=== PATIENT | female | born 1960 | race Hispanic/Latino ===

== ENCOUNTER 2023-04-15 16:17 | Emergency (ER) | payer BC ==
[~2023-04-15 16:17] MED LIST: Iopamidol 370 76% 100 ML VIAL ONE
[2023-04-15 17:23] LABS: #Basophils 0.1 10x3/uL (0.0-0.2); #Eosinphils 0.4 10x3/uL (0.0-0.5); #Monocytes 1.3 10x3/uL (0.0-1.1); #Neutrophils 11.3 10x3/uL (1.5-8.4); %Basophils 0.5 % (0.0-2.0); %Eosinophils 2.7 % (0.0-6.0); %Lymphocytes 11.8 % (18.0-47.0); %Monocytes 8.8 % (0.0-10.0); %Neutrophils 75.8 % (40.0-75.0); Hemoglobin 13.3 g/dL (12.0-15.5); Mean Corpuscular HGB CONC 31.1 g/dL (32.0-36.0); Mean Corpuscular Volume 80.4 fl (81.6-98.3); Mean Platelet Volume 9.6 fl (7.4-10.4); Platelet Count 400 10x3/uL (150-450); RBC Distribution Width 15.1 % (11.5-14.5); Red Blood Cell (RBC) Count 5.31 10x6/uL (3.90-5.03)
[2023-04-15 17:35] LABS: ALT (SGPT) 46 U/L (8-55); AST (SGOT) 42 U/L (5-34); Albumin 3.6 g/dL (3.4-4.8); Alkaline Phosphatase 135 U/L (40-110); Anion Gap 18 mmol/L (10-20); BUN (Urea Nitrogen) 16 mg/dL (9.8-20.1); Bilirubin, Total 0.5 mg/dL (0.2-1.2); Calc. Creatinine Clearance 0 mL/min (70-130); Calcium 8.9 mg/dL (7.8-10.44); Carbon Dioxide 24 mmol/L (23-31); Chloride 103 mmol/L (98-107); Estimated GFR 99; Globulin 3.3 g/dL (2.4-3.5); Glucose 107 mg/dL (80-115); Protein, Total 6.9 g/dL (5.8-8.1); Sodium 141 mmol/L (136-145)
[2023-04-15 17:56] LABS: INR-International Normal Ratio 1.1; PTT 27.4 sec (22.0-33.0); Prothrombin Time 11.6 sec (9.5-12.1)
[2023-04-15] MEDS ORDERED: Nitroglycerin 2% Ointment 1 INCH/1 GM Packet ONE (18:07)
[2023-04-15] MEDS ORDERED: Aspirin Chewable 81 MG TAB ONE (18:07)
[2023-04-15 18:13] LABS: D-Dimer Test 2.02 mg/L FEU (0.19-0.50)
[2023-04-15] MEDS ORDERED: Furosemide 40 MG/4 ML VIAL ONE (21:20)
[2023-04-15 21:50] LABS: Troponin I 0.052 ng/mL (< 0.028)
== END 2023-04-15 22:07 | disposition short-term general hospital (02) ==
LOC: CSHERS 16:17
DX: R07.9 Chest pain, unspecified (principal); J90 Pleural effusion, not elsewhere classified
CPT/HCPCS: 36415; 71045; 71275; 80053; 82553; 83605; 83690; 83880; 84484; 85025; 85379; 85610; 85730; 93005; 94760; 96374; J1940; Q9967